=== PATIENT | male | born 1985 | race Two or more races ===

== ENCOUNTER 2023-02-10 06:18 | Emergency (ER) | payer MEDICAID ==
[~2023-02-10] VITALS: Ht 177.8 cm; Wt 88.6 kg
[2023-02-10 06:54] LABS: Basophils # (auto) 0.1 10 ^3/uL (0-0.2); Basophils % (auto) 0.4 % (0.0-2.0); Eosinophils # (auto) 0 10 ^3/uL (0-0.8); Eosinophils % (auto) 0.1 % (0.0-7.0); Hematocrit 41.6 % (41.0-53.0); Hemoglobin 14.4 g/dL (13.5-17.5); Lymphocytes # (auto) 2.2 10 ^3/uL (0.4-5.4); Lymphocytes % (auto) 13.8 % (10.0-50.0); Mean Corpuscular Hemoglobin 31.3 pg (28.0-32.0); Mean Corpuscular Hgb Conc. 34.6 g/dL (32.0-36.0); Mean Corpuscular Volume 90.4 fL (80.0-100.0); Monocytes # (auto) 1.4 10 ^3/uL (0-1.3); Monocytes % (auto) 8.9 % (0.0-12.0); Neutrophils # (auto) 12.4 10 ^3/uL (1.6-8.6); Neutrophils % (auto) 76.8 % (37.0-80.0); Nucleated Red Blood Cells % 0.1 %; Red Cell Distribution Width 13.2 % (11.8-14.3); White Blood Cell 16.2 10^3/uL (4.4-10.8)
[2023-02-10 07:05] LABS: Albumin 4.7 g/dL (3.4-5.0); BUN/Creatinine Ratio 19.4 (10.0-20.0); Calcium 10.1 mg/dL (8.5-10.1); Potassium 3.3 mmol/L (3.5-5.1)
[2023-02-10] MEDS ORDERED: PROCHLORPERAZINE EDISYLATE 5 MG/ML 2ML VIAL IV ONE (07:15)
[2023-02-10] MEDS ORDERED: SODIUM CHLORIDE 0.9% 1,000 ML IVB ONE (07:15)
[2023-02-10] MEDS ORDERED: MORPHINE SULFATE 4 MG/ML SYR/VIAL IV ONE (07:15)
[2023-02-10] MEDS ORDERED: PANTOPRAZOLE 40 MG/10 ML VIAL INJ IV ONE (07:15)
[2023-02-10 07:18] LABS: Bilirubin, Total 1.2 mg/dL (0.2-1.0); Total Protein 8.3 g/dL (6.4-8.2)
[2023-02-10 08:13] VITALS: PULSE 68; RESP 20; O2SAT 99
[2023-02-10] MEDS ORDERED: PANT40TA2 PO (10:53)
[2023-02-10] MEDS ORDERED: ZOFR4T PO (10:53)
[2023-02-10 11:15] VITALS: BP 110/66; PULSE 74; RESP 20; TEMP 98.1; O2SAT 96
== END 2023-02-10 11:15 | disposition home or self-care (01) ==
LOC: ER 06:18
DX: R11.2 Nausea with vomiting, unspecified (principal); F32.9 Major depressive disorder, single episode, unspecified; J45.909 Unspecified asthma, uncomplicated; F12.90 Cannabis use, unspecified, uncomplicated
CPT/HCPCS: 36415; 74176; 80053; 83690; 85025; 96361; 96374; 96375; 99285; C9113; J0780; J2270; J7030